=== PATIENT | male | born 1975 | race Caucasian/White ===

== ENCOUNTER 2018-03-24 20:33 | Emergency (ER) | payer SELFPAY ==
[2018-03-24 20:35] VITALS: Ht 172.7 cm
[2018-03-24 21:20] LABS: BASOPHIL % 0.5 % (0-2); PLATELET COUNT 254 x10^3mcL (130-400); RED CELL DISTRIBUTION WIDTH 12.1 % (11.5-14.5)
[2018-03-24 21:28] LABS: CALCIUM 8.6 mg/dL (8.5-10.1); CARBON DIOXIDE 27.2 mmol/L (21-32); CHLORIDE SERUM 103 mmol/L (98-107); CREATININE SERUM 0.8 mg/dL (0.7-1.3); GFR1 > 60 mL/min; GLUCOSE SERUM 90 mg/dL (74-106); POTASSIUM SERUM 3.7 mmol/L (3.5-5.1); SODIUM SERUM 139 mmol/L (136-145)
[2018-03-24 21:31] LABS: PHOSPHOROUS 2.6 mg/dL (2.5-4.9)
[2018-03-24 21:40] LABS: CK-MB 0.5 ng/mL (0-3.6)
[2018-03-24 22:06] VITALS: BP 125/85
== END 2018-03-24 22:06 | disposition home or self-care (01) ==
LOC: ED 20:33
PROVIDERS: Emergency Medicine
DX: R42 Dizziness and giddiness (principal); M54.2 Cervicalgia; R53.1 Weakness
CPT/HCPCS: 36415; 83880